=== PATIENT | female | born 1980 | race Caucasian/White ===

== ENCOUNTER → 2016-06-27 | Outpatient (CLI) | payer SELFPAY ==
[2016-06-27 09:02] LABS: ASPARTATE AMINO TRANSFERASE 44 IU/L (8-39); BILIRUBIN,TOTAL 0.5 mg/dL (0.3-1.2); BLOOD UREA NITROGEN 12 mg/dL (7-22); BUN/CREATININE RATIO 17.14 (6-20); CALCIUM 9.6 mg/dL (8.7-10.7); CHLORIDE 102 meq/L (98-112); CREATININE 0.7 mg/dL (0.50-1.20); EST GLOMERULAR FILTRATION > 60 (>60 ml/min/1.73m(2)); GLUCOSE 264 mg/dL (78-110); HDL CHOLESTEROL 43 mg/dL (40-150); POTASSIUM 4.2 meq/L (3.8-5.2); SODIUM 139 meq/L (135-145); TOTAL PROTEIN 7.7 g/dL (6.1-8.0); TRIGLYCERIDES 300 mg/dL (44-200)
[2016-06-27 09:03] LABS: HEMOGLOBIN A1C 9.23 % (4.2-6.0); MEAN BLOOD GLUCOSE (CALC) 221.359 mg/dL
== END ==
LOC: LAB 08:04
PROVIDERS: ATTEND Family Medicine
DX: E11.9 Type 2 diabetes mellitus without complications (principal); Z79.4 Long term (current) use of insulin; E78.00 Pure hypercholesterolemia, unspecified; F17.200 Nicotine dependence, unspecified, uncomplicated
CPT/HCPCS: 36415; 80053; 80061; 83036

== ENCOUNTER 2016-06-28 15:10 | Emergency (ER) | payer SELFPAY ==
[2016-06-28] MEDS ORDERED: Lidocaine 1% 10 MG/ML - 20 ML VIAL SUBCUT ONE (15:41)
[2016-06-28 15:42] VITALS: RESP 16; TEMP 96
--- NOTE | 2016-06-28 23:40 | PDOC ---
Skin Rash/Insect/Abscess HPI - General Chief Complaint: Integumentary Stated Complaint: boil on abdomen Date Seen by Provider: 06/28/16 Time Seen by Provider: 15:25 Source: POSITIVE: Patient Exam Limitations: POSITIVE: No limitations Nurse's Notes Reviewed & Considered: Yes - History of Present Illness Initial Comments: The patient is a 36-year-old female. She states that for the past 2 days she has had a painful boil on her left lower abdomen. History of non-insulin- dependent diabetes mellitus. History of PCOS. No fevers or chills. No GI or symptoms. Have you received a tetanus shot in the past 10 years?: Unknown Body Location Affected: REPORTS: Abdomen (Fluctuant subcutaneous abscess left lower abdomen) Timing: REPORTS: Gradual, Getting Worse Duration: >24 hours (Approximately 24 hours) Severity: Moderate Quality: REPORTS: "Pain" Identified Causes: REPORTS: Yes (Subcutaneous abscess as above) Where Exposed: REPORTS: Home Suspected Etiology: DENIES: Antibiotic, Aspirin, NSAID, KATIANA Inhibitor, Shellfish , Nuts, Soybeans, Eggs, Dairy, Bee/Wasp Sting, Ant Bite, Poison [place], Poison [place] , Infectious Illness, Spider Bite, Insect Bite, Soap, Detergent, Other Similar Symptoms Previously: No Recent Care Received: REPORTS: Denies Any Prior Injuries Related to Current Complaint?: No - Patient Home Medications Home Medications: Home Medications Ibuprofen [Motrin Tab] 800 mg PO TID PRN 10/13/14 Pen Needle, Diabetic, Safety [Autoshield Duo Pen Needle] 1 each QHS #30 unit 10/29/14 Insulin Glargine SoloStar Inj [Lantus Solostar Inj] 34 units SUBCUT QHS #1 box 08/26/15 Metformin HCl 1,000 mg ORAL BID #180 tab 08/26/15 Citalopram Hydrobromide [Celexa] 1 tab PO QD #90 tab 12/23/15 Syringe & Needle,Insulin,1 ml [Insulin Syringe] 1 each QHS #1 box 02/24/16 Pen Needle, Diabetic [Unifine Pentips Plus] 1 each QHS #100 unit 02/26/16 Lovastatin 20 mg PO DAILY #90 tab 03/06/16 - Patient Allergies Allergies/Adverse Reactions: Allergies Allergy/AdvReac Type Severity Reaction Status Date / Time No Known Drug Allergies Allergy NOT Verified 06/28/16 15:21 APPLICABLE Past Medical History - heen HEENT History: Cataracts, Other (please comment) Additional HEENT History: Hx of bilateral cataract removal. Cardiovascular History: Hypertension Respiratory History: Denies History, Other (please comment) Additional Respiratory History: chronic tobacco abuse Gastrointestinal History: GERD, Gallbladder Disease Additional Gastrointestinal History: Hx of Cholecystectomy Genitourinary History: Other (please comment) Additional Genitourinary History: Pt reports UTI's Endocrine History: Type 2 Diabetes (oral), Type 2 Diabetes (insulin) Musculoskeletal History: Joint Pain Prosthesis or Implant: No Additional Musculoskeletal History: Hx of Right - ACL repair. Neurological History: Denies History Blood Disorders: Denies History Psychiatric History: Depression, Substance Abuse Additional Psychiatric History: Hx of ETOH abuse History of Sexually Transmitted Diseases: No Female Reproductive History: Other (please comment) Additional Female Reproductive History: pcos LMP: 05/30/16 Cancer History: Denies History In Past Year Been Physically Harmed or Verbally Threatened: No History of MDRO: No History of Other Communicable Diseases: No Tobacco Use: Current Every Day Smoker Alcohol Use: Rarely Substance Use Type: None Previous Surgical History: No Type / Date of Surgery: EYE SURGERY Bilateral cataract extraction and IOLI, CHOLECYSTECTOMY, R KNEE ACL repair Anesthesia Reactions: No Malignant Hyperthermia: No Significant Family History: Diabetes, Renal disease Past Medical History Reviewed: Reviewed - No Changes ROS - Limitations ROS Limitations: No Limitations Constitution: REPORTS: Denies Symptoms Cardiovascular: REPORTS: Denies Cardiac Symptoms Respiratory: REPORTS: Denies Resp Symptoms Neurological: REPORTS: Denies Neuro Symptoms Gastrointestinal: REPORTS: Denies GI Symptoms Endocrine: REPORTS: Denies Symptoms Musculoskeletal: REPORTS: Denies MS Symptoms Genitourinary: REPORTS: Denies Symptoms Eyes: REPORTS: Denies Symptoms ENT: REPORTS: Denies Symptoms Skin: REPORTS: Skin Lesions (Subcutaneous abscess left lower abdomen) Lympathic: REPORTS: Denies Lympathic Symptoms Immunologic: POSITIVE: Denies Symptoms Psychiatric: POSITIVE: Denies Psych Symptoms Skin Rash/Insect/Abscess Exam - General Appearance General Appearance: REPORTS: Alert, Cooperative, No Acute Distress, No Evidence of Trauma, Other (Obese with prominent abdominal pannus, under which abscess is located) - Skin Skin: REPORTS: Abscess, Tender Indurated Area, Pointing, Fluctuant, Wtih Erythema Skin Location: REPORTS: Abdomen Skin Character: REPORTS: Asymmetric Skin Symptoms: REPORTS: Warmth, Tenderness, Swelling (Over abscess) - Respiratory Respiratory: REPORTS: No Respiratory Distress, Breath Sounds Normal - Cardiovascular Cardiovascular: REPORTS: Regular Rate and Rhythm, Heart Sounds Normal, Equal Pulses, Strong Pulses Peripheral Pulses: Radial (R): 2+, Radial (L): 2+ - Abdomen Abdomen: Soft: (All Quadrants), Normal Bowel Sounds: (All Quadrants), Denies Tenderness: (All Quadrants), No Splenomegaly: (All Quadrants), No Hepatomegaly: (All Quadrants), No Guarding: (All Quadrants), No Rebound: (All Quadrants), No Palpable Pulse: (All Quadrants), No Palpabale Mass: (All Quadrants), No Distention: (All Quadrants), No Rigidity: (All Quadrants) - Neurological / Psychological Neurological: REPORTS: 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, 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, 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 Normal As Tested, Motor Normal, Sensation Normal Procedures - Incision and Drainage Site: left lower abdomen Skin Prep: Sterile Field Maintained, Sterile Drapes Applied, Sterile Dressing Applied, Shur-Clens Local Anesthesia Used - Indicate Amt Used in Comment: Lidocaine 1%: Yes Blade Size: 15 I & D Procedure: sterile drapes applied, sterile dressing applied, gauze wick placed (Quarter inch Nu Gauze) I&D Treatment: Purulent Drainage, Large Amount, Probed to Brk Loculations, Packed w/ Gauze, Obtained Cultures Images - Complete Complete: 1 - Subcutaneous abscess Skin Rash/Abscess Progress - Patient's Progress Pain Medication Addressed: POSITIVE: Yes (Recommended Advil or Tylenol) School/Work Release Addressed: POSITIVE: Not Applicable Re-Examine Time:: 16:05 Re-Examine Comment: Abscess incision and drainage complete Status: POSITIVE: Improved, Re-Examined (Abscess incised and drained) - Consult Counseled: POSITIVE: Patient, RE: DX, RE: Need for F/U Patient Care Time - Estimated PCT Patient Care Time (In Minutes): 25 Vital Signs - VS Reviewed Vital Signs Reviewed: Yes Discharge Clinical Impression: Abscess Discharge Disposition: Discharged to Home Condition: Good Patient Instructions Given at Discharge: Abscess Incision and Drainage (ED) Additional Instructions: Tylenol or Advil for discomfort. Keep abscess packing in. Return in 2 days for reevaluation and probably packing change. Return anytime if condition worsens in any way whatsoever. Follow Up With: CONNOR ROBERTSON [Primary Care Provider] - (Instructions as above. Return anytime if condition worsens. Return in 2 days for reevaluation as above.)
== END 2016-06-28 16:20 | disposition home or self-care (01) ==
LOC: ER 15:10
DX: L02.211 Cutaneous abscess of abdominal wall (principal); E11.9 Type 2 diabetes mellitus without complications; Z79.4 Long term (current) use of insulin
CPT/HCPCS: 10060; 87070; 87186; 87205; 99282; J2001

== ENCOUNTER 2016-06-30 10:42 | Emergency (ER) | payer SELFPAY ==
[2016-06-30 11:10] VITALS: RESP 18; TEMP 97.1
--- NOTE | 2016-06-30 11:17 | PDOC ---
Wound/Burn Recheck HPI - General Chief Complaint: Wound Recheck / Suture Removal Stated Complaint: Wound Recheck Date Seen by Provider: 06/30/16 Time Seen by Provider: 10:55 Source: POSITIVE: Patient Exam Limitations: POSITIVE: No limitations Nurse's Notes Reviewed & Considered: Yes - History of Present Illness Initial Comments: The patient is a 36-year-old female who presents to the emergency department for a wound recheck. She developed an abscess in the left lower abdomen and was evaluated here in the emergency room on 02/25. She underwent incision and drainage of an abscess with packing placement. She is here today for wound check. She states that overall the wound is feeling better with decreased pain. She denies fevers or chills or any other associated complaints. She is diabetic and states that her blood sugars are up and down which is not unusual for her. Have you received a tetanus shot in the past 10 years?: Yes - Patient Home Medications Home Medications: Home Medications Ibuprofen [Motrin Tab] 800 mg PO TID PRN 10/13/14 Pen Needle, Diabetic, Safety [Autoshield Duo Pen Needle] 1 each QHS #30 unit 10/29/14 Metformin HCl 1,000 mg ORAL BID #180 tab 08/26/15 Citalopram Hydrobromide [Celexa] 1 tab PO QD #90 tab 12/23/15 Syringe & Needle,Insulin,1 ml [Insulin Syringe] 1 each QHS #1 box 02/24/16 Pen Needle, Diabetic [Unifine Pentips Plus] 1 each QHS #100 unit 02/26/16 Lovastatin 20 mg PO DAILY #90 tab 03/06/16 Empagliflozin/Linagliptin [Glyxambi 25 Mg-5 Mg Tablet] Sample #91 06/29/16 Insulin Glargine SoloStar Inj [Lantus Solostar Inj] 40 units SUBCUT QHS #1 box 06/29/16 Sulfameth/Trimeth 800/160 Tab [Bactrim DS 800/160 Tab] 1 each PO BID #10 tablet 06/30/16 - Patient Allergies Allergies/Adverse Reactions: Allergies Allergy/AdvReac Type Severity Reaction Status Date / Time No Known Drug Allergies Allergy NOT Verified 06/30/16 10:52 APPLICABLE Past Medical History - heen HEENT History: Cataracts, Other (please comment) Additional HEENT History: Hx of bilateral cataract removal. Cardiovascular History: Hypertension, Hyperlipidemia Respiratory History: Denies History, Other (please comment) Additional Respiratory History: chronic tobacco abuse Gastrointestinal History: GERD, Gallbladder Disease Additional Gastrointestinal History: Hx of Cholecystectomy Genitourinary History: Other (please comment) Additional Genitourinary History: Pt reports UTI's Endocrine History: Type 2 Diabetes (oral), Type 2 Diabetes (insulin) Musculoskeletal History: Joint Pain Prosthesis or Implant: No Additional Musculoskeletal History: Hx of Right - ACL repair. Neurological History: Denies History Blood Disorders: Denies History Psychiatric History: Depression, Substance Abuse Additional Psychiatric History: Hx of ETOH abuse History of Sexually Transmitted Diseases: No Cancer History: Denies History In Past Year Been Physically Harmed or Verbally Threatened: No History of MDRO: No History of Other Communicable Diseases: No Tobacco Use: Current Every Day Smoker Alcohol Use: Rarely Substance Use Type: None Previous Surgical History: No Type / Date of Surgery: EYE SURGERY Bilateral cataract extraction and IOLI, CHOLECYSTECTOMY, R KNEE ACL repair Anesthesia Reactions: No Malignant Hyperthermia: No Significant Family History: Diabetes, Renal disease Past Medical History Reviewed: Reviewed - No Changes ROS - Limitations ROS Limitations: No Limitations (Review of systems otherwise noncontributory) Wound/Burn Recheck Exam - General Appearance General Appearance: POSITIVE: Alert, Cooperative, No Acute Distress - Abdomen Additional Abdominal Details: Examination of the abdomen reveals a small incision to the left lower abdomen under the pannus, the packing is removed and a small wick replaced. Overall the abscess does not appear to be reaccumulating and appears to be resolving. There is however some diffuse erythema and warmth that extends up onto her abdomen for 5 cm from the wound concerning for a mild cellulitis. Wound/Burn Recheck Progress - Patient's Progress MDM / ED Course: She does appear to be developing some mild some cellulitis around the wound. Wound cultures are still pending at this time. She was started on Bactrim DS one twice a day. some packing was placed back in the wound and she is advised to return to the emergency room in 2 days again for a wound recheck and likely packing removal. - Consult Counseled: POSITIVE: Patient, RE: DX, RE: Need for F/U Patient Care Time - Estimated PCT Patient Care Time (In Minutes): 10 Vital Signs - Recent Vital Signs Vital Signs: Vital Signs (Last 8 hours) Temp Pulse Resp BP Pulse Ox 06/30/16 10:54 97.1 F 107 H 18 131/107 93 - VS Reviewed Vital Signs Reviewed: Yes Discharge Clinical Impression: Abscess, Cellulitis Condition: Stable Prescriptions / Orders: Sulfameth/Trimeth 800/160 Tab [Bactrim DS 800/160 Tab] 1 each PO BID #10 tablet Patient Instructions Given at Discharge: Cellulitis (ED), Abscess (ED) Additional Instructions: There does appear to be some infection in the soft tissue around where the abscess was drained. Recommend starting Bactrim DS one twice a day for 5 days. Keep the dressing and packing in place for now. Return to the emergency room for a wound recheck in 2 days. Return sooner if fevers chills, increased pain, any worsening or change in symptoms. Follow Up With: CONNOR ROBERTSON [Primary Care Provider] -
== END 2016-06-30 11:15 | disposition home or self-care (01) ==
LOC: ER 10:42
DX: L02.211 Cutaneous abscess of abdominal wall (principal); L03.311 Cellulitis of abdominal wall; E11.9 Type 2 diabetes mellitus without complications; Z79.4 Long term (current) use of insulin
CPT/HCPCS: 99282

== ENCOUNTER 2016-07-02 08:40 | Emergency (ER) | payer SELFPAY ==
--- NOTE | 2016-07-02 08:56 | PDOC ---
Wound/Burn Recheck HPI - General Chief Complaint: Wound Recheck / Suture Removal Stated Complaint: ABDOMINAL ABCESS RECHECK Date Seen by Provider: 07/02/16 Time Seen by Provider: 08:45 Source: POSITIVE: Patient Exam Limitations: POSITIVE: No limitations - History of Present Illness Initial Comments: Ms Mitchell is a 36 year old woman coming in today for an abscess recheck. She was seen most recently last wednesday, 2 days ago, and was started on bactrim at that time, adn the wound was re-packed. The abscess was drained first 4 days ago. She feels much better today, with less redness, less pain, and no fever/nausea/ vomiting/fatigue/dizziness or other systemic symptoms. There is still a small amount of drainage present. Have you received a tetanus shot in the past 10 years?: Yes - Patient Home Medications Home Medications: Home Medications Ibuprofen [Motrin Tab] 800 mg PO TID PRN 10/13/14 Pen Needle, Diabetic, Safety [Autoshield Duo Pen Needle] 1 each QHS #30 unit 10/29/14 Metformin HCl 1,000 mg ORAL BID #180 tab 08/26/15 Citalopram Hydrobromide [Celexa] 1 tab PO QD #90 tab 12/23/15 Syringe & Needle,Insulin,1 ml [Insulin Syringe] 1 each QHS #1 box 02/24/16 Pen Needle, Diabetic [Unifine Pentips Plus] 1 each QHS #100 unit 02/26/16 Lovastatin 20 mg PO DAILY #90 tab 03/06/16 Insulin Glargine SoloStar Inj [Lantus Solostar Inj] 40 units SUBCUT QHS #1 box 06/29/16 Empagliflozin/Linagliptin [Glyxambi 25 mg-5 mg Tablet] 1 each PO DAILY 06/30/16 Sulfameth/Trimeth 800/160 Tab [Bactrim DS 800/160 Tab] 1 each PO BID #10 tablet 06/30/16 - Patient Allergies Allergies/Adverse Reactions: Allergies Allergy/AdvReac Type Severity Reaction Status Date / Time No Known Drug Allergies Allergy NOT Verified 06/30/16 10:52 APPLICABLE Past Medical History - heen HEENT History: Cataracts, Other (please comment) Additional HEENT History: Hx of bilateral cataract removal. Cardiovascular History: Hypertension, Hyperlipidemia Respiratory History: Denies History, Other (please comment) Additional Respiratory History: chronic tobacco abuse Gastrointestinal History: GERD, Gallbladder Disease Additional Gastrointestinal History: Hx of Cholecystectomy Genitourinary History: Other (please comment) Additional Genitourinary History: Pt reports UTI's Endocrine History: Type 2 Diabetes (oral), Type 2 Diabetes (insulin) Musculoskeletal History: Joint Pain Prosthesis or Implant: No Additional Musculoskeletal History: Hx of Right - ACL repair. Neurological History: Denies History Blood Disorders: Denies History Psychiatric History: Depression, Substance Abuse Additional Psychiatric History: Hx of ETOH abuse History of Sexually Transmitted Diseases: No Cancer History: Denies History History of MDRO: No History of Other Communicable Diseases: No Alcohol Use: Rarely Substance Use Type: None Previous Surgical History: No Type / Date of Surgery: EYE SURGERY Bilateral cataract extraction and IOLI, CHOLECYSTECTOMY, R KNEE ACL repair Anesthesia Reactions: No Malignant Hyperthermia: No Significant Family History: Diabetes, Renal disease Past Medical History Reviewed: Reviewed - No Changes ROS - Limitations ROS Limitations: No Limitations Constitution: REPORTS: Denies Symptoms Cardiovascular: REPORTS: Denies Cardiac Symptoms Respiratory: REPORTS: Denies Resp Symptoms Neurological: REPORTS: Denies Neuro Symptoms Gastrointestinal: REPORTS: Denies GI Symptoms Endocrine: REPORTS: Denies Symptoms Musculoskeletal: REPORTS: Denies MS Symptoms Eyes: REPORTS: Denies Symptoms ENT: REPORTS: Denies Symptoms Skin: REPORTS: Other (as in HPI) Immunologic: POSITIVE: Denies Symptoms Psychiatric: POSITIVE: Denies Psych Symptoms Wound/Burn Recheck Exam - General Appearance General Appearance: POSITIVE: Alert, Cooperative, No Acute Distress - Neuro/Vascular/Tendon Neuro/Vascular/Tendon: POSITIVE: No Vascular Compromise, Motor Normal, Sensation Normal - Skin Skin: POSITIVE: Other (small healing abscess site on left lower abdomen. erythema is very much improved compared to line drawn 2 days ago. no fluctuance. small amount of packing present. minimally TTP) - HEENT HEENT: POSITIVE: Head Inspection Nml, Eyes Inspection Nml, Ears Inspection Nml - Neck Neck/Back: POSITIVE: Normal Inspection - Respiratory / CVS Respiratory / CVS: POSITIVE: No Respiratory Distress, Regular Rate/Rhythm - Abdomen Abdomen: Soft: (All Quadrants), Denies Tenderness: (All Quadrants), No Guarding : (All Quadrants), No Rebound: (All Quadrants) Wound/Burn Recheck Progress - Patient's Progress MDM / ED Course: Ms Mitchell is here for an acute drained abscess, this is her 3rd visit for this same problem. At this wound check, she is almost completely recovered. We removed the packing and did not need to replace it. We recommended finishing out the course of bactrim and following up with primary care if she doesn't feel better once the antibiotics are finished. Patient Care Time - Estimated PCT Patient Care Time (In Minutes): 5 Vital Signs - VS Reviewed Vital Signs Reviewed: Yes Discharge Clinical Impression: Abscess Discharge Disposition: Discharged to Home Condition: Stable Patient Instructions Given at Discharge: Abscess Incision and Drainage (ED)
[2016-07-02 09:04] VITALS: RESP 14; TEMP 96.9
== END 2016-07-02 09:05 | disposition home or self-care (01) ==
LOC: ER 08:40
DX: L02.211 Cutaneous abscess of abdominal wall (principal); E11.9 Type 2 diabetes mellitus without complications; Z79.4 Long term (current) use of insulin
CPT/HCPCS: 99282

== ENCOUNTER 2016-09-19 21:25 | Emergency (ER) | payer SELFPAY ==
[2016-09-19 21:42] VITALS: RESP 20; TEMP 97.1
[2016-09-19] MEDS ORDERED: IBUPROFEN 600 MG TABLET PO ONE (21:48)
[2016-09-19] MEDS ORDERED: HYDROcodone-APAP 5 MG -325 MG TABLET PO SCH (22:00)
[2016-09-19] MEDS ORDERED: AMOXICILLIN 500 MG CAPSULE PO SCH (22:00)
--- NOTE | 2016-09-19 22:42 | PDOC ---
Sore Throat/Dental Pain HPI - General Chief Complaint: Nasal/Mouth Problem /Injury Stated Complaint: TOOTH PAIN Date Seen by Provider: 09/19/16 Time Seen by Provider: 21:30 Source: POSITIVE: Patient Exam Limitations: POSITIVE: No limitations Nurse's Notes Reviewed & Considered: Yes - History of Present Illness Initial Comments: The patient is a 36-year-old female who presents to the emergency department with left upper molar pain. She states that she has had problems with a left upper molar for some time. A couple of days ago she was eating and several pieces of the tooth broke off. Since then she has had increased pain as well as some drainage from the tooth. She denies fevers or chills, difficulty swallowing or any other associated complaints. - Patient Home Medications Home Medications: Home Medications Ibuprofen [Motrin Tab] 800 mg PO TID PRN 10/13/14 Pen Needle, Diabetic, Safety [Autoshield Duo Pen Needle] 1 each QHS #30 unit 10/29/14 Metformin HCl 1,000 mg ORAL BID #180 tab 08/26/15 Citalopram Hydrobromide [Celexa] 1 tab PO QD #90 tab 12/23/15 Syringe & Needle,Insulin,1 ml [Insulin Syringe] 1 each QHS #1 box 02/24/16 Pen Needle, Diabetic [Unifine Pentips Plus] 1 each QHS #100 unit 02/26/16 Lovastatin 20 mg PO DAILY #90 tab 03/06/16 Insulin Glargine SoloStar Inj [Lantus Solostar Inj] 40 units SUBCUT QHS #1 box 06/29/16 Empagliflozin/Linagliptin [Glyxambi 25 mg-5 mg Tablet] 1 each PO DAILY 06/30/16 Sulfameth/Trimeth 800/160 Tab [Bactrim DS 800/160 Tab] 1 each PO BID #10 tablet 06/30/16 Insulin Glargine SoloStar Inj [Lantus Solostar Inj] Sample #10 08/25/16 Amoxicillin 500 mg PO Q8H #21 cap 09/19/16 HYDROcodone/APAP 5/325 Tab [[place] 5/325 Tab] 1 each PO Q6H PRN #10 tablet - Patient Allergies Allergies/Adverse Reactions: Allergies Allergy/AdvReac Type Severity Reaction Status Date / Time No Known Drug Allergies Allergy NOT Verified 09/19/16 21:32 APPLICABLE Past Medical History - heen HEENT History: Cataracts, Other (please comment) Additional HEENT History: Hx of bilateral cataract removal. Cardiovascular History: Hypertension, Hyperlipidemia Respiratory History: Denies History, Other (please comment) Additional Respiratory History: chronic tobacco abuse Gastrointestinal History: GERD, Gallbladder Disease Additional Gastrointestinal History: Hx of Cholecystectomy Genitourinary History: Other (please comment) Additional Genitourinary History: Pt reports UTI's Endocrine History: Type 2 Diabetes (oral), Type 2 Diabetes (insulin) Musculoskeletal History: Joint Pain Prosthesis or Implant: No Additional Musculoskeletal History: Hx of Right - ACL repair. Neurological History: Denies History Blood Disorders: Denies History Psychiatric History: Depression, Substance Abuse Additional Psychiatric History: Hx of ETOH abuse History of Sexually Transmitted Diseases: No Female Reproductive History: Other (please comment) Additional Female Reproductive History: PCOS Obstetrical History: Denies History Cancer History: Denies History In Past Year Been Physically Harmed or Verbally Threatened: No History of MDRO: No History of Other Communicable Diseases: No Tobacco Use: Current Every Day Smoker Alcohol Use: Rarely Substance Use Type: None Previous Surgical History: No Type / Date of Surgery: EYE SURGERY Bilateral cataract extraction and IOLI, CHOLECYSTECTOMY, R KNEE ACL repair Anesthesia Reactions: No Malignant Hyperthermia: No Significant Family History: Diabetes, Renal disease Past Medical History Reviewed: Reviewed - No Changes ROS - Limitations ROS Limitations: No Limitations Constitution: DENIES: Chills, Fever Cardiovascular: REPORTS: Denies Cardiac Symptoms Respiratory: REPORTS: Denies Resp Symptoms Neurological: REPORTS: Denies Neuro Symptoms Sore Throat/Dental Pain Exam - General Appearance General Appearance: REPORTS: Alert, Cooperative, No Acute Distress - HEENT Head / Face: POSITIVE: No Facial Swelling Eyes: POSITIVE: Inspection Normal Ears: POSITIVE: Ears Normal Inspection Nose: POSITIVE: Inspection Normal Oropharynx: POSITIVE: Pharynx Inspect. Nml, Airway Intact, Voice Normal, Moist Mucous Membranes, Other (She does have multiple dental caries, left upper molar is broken off at the gum, there is some surrounding erythema and swelling to the gum at the base of this tooth) Neck: POSITIVE: Supple. NEGATIVE: Lymphadenopathy - Respiratory Respiratory: REPORTS: No Respiratory Distress, Breath Sounds Normal - Cardiovascular Cardiovascular: REPORTS: Regular Rate and Rhythm, Heart Sounds Normal Sore Throat/Dental Progress - Patient's Progress MDM / ED Course: The patient was started on amoxicillin 500 mg 3 times a day for 7 days. She is advised to take ibuprofen for pain and was given a prescription for [place] 5/325 as needed for pain. She is advised return to the emergency room if increased pain, increased swelling, difficulty swallowing, dehydration, any worsening or change in symptoms. She is advised to follow-up with a dentist as soon as possible. [facility] [place] as she states she does not have the money to go to a local dentist. - Consult Counseled: POSITIVE: Patient, RE: DX, RE: Need for F/U Patient Care Time - Estimated PCT Patient Care Time (In Minutes): 10 Vital Signs - Recent Vital Signs Vital Signs: Vital Signs (Last 8 hours) Temp Pulse Resp BP Pulse Ox 09/19/16 21:27 97.1 F 100 20 134/97 92 - VS Reviewed Vital Signs Reviewed: Yes Discharge Clinical Impression: Dental abscess Discharge Disposition: Discharged to Home Condition: Stable Prescriptions / Orders: Amoxicillin 500 mg PO Q8H #21 cap HYDROcodone/APAP 5/325 Tab [[place] 5/325 Tab] 1 each PO Q6H PRN #10 tablet PRN Reason: Pain Patient Instructions Given at Discharge: Dental Abscess (ED) Additional Instructions: Start amoxicillin 500 mg 3 times a day for 7 days. Ibuprofen 4-600 mg every 6 hours as needed for pain. [place] 5/325 one every 6 hours as needed for pain. Return to the emergency room if increased swelling, difficulty swallowing, dehydration, any worsening or change in symptoms. Recommend follow-up with a dentist as soon as possible. [facility] [place] [facility] a dental office that sees people on a sliding scale. Their phone number is [phone]. Follow Up With: CONNOR ROBERTSON [Primary Care Provider] -
== END 2016-09-19 22:02 | disposition home or self-care (01) ==
LOC: ER 21:25
DX: K04.7 Periapical abscess without sinus (principal); K08.89 Other specified disorders of teeth and supporting structures
CPT/HCPCS: 99282

== ENCOUNTER → 2016-09-19 | Outpatient (CLI) | payer SELFPAY ==
[2016-09-19 07:43] LABS: HEMATOCRIT 49.5 % (37.0-47.0); HEMOGLOBIN 16.8 g/dL (12.0-16.0); MEAN CORPUSCULAR HEMOGLOBIN 29.7 PG (27-31); MEAN CORPUSCULAR HGB CONC 33.9 g/dL (33-37); MEAN CORPUSCULAR VOLUME 87.6 FL (81-99); MEAN PLATELET VOLUME 9.5 FL (7.4-12.2); RED BLOOD COUNT 5.65 10^6/uL (4.20-5.40)
[2016-09-19 08:15] LABS: BLOOD UREA NITROGEN 18 mg/dL (7-22); CHOL/HDL RATIO 4.17 RATIO (0-4.0); EST GLOMERULAR FILTRATION > 60 (>60 ml/min/1.73m(2)); HDL CHOLESTEROL 41 mg/dL (40-150); SERUM ALBUMIN 4.2 g/dL (3.5-4.8); SERUM CHOLESTEROL 171 mg/dL (120-200)
[2016-09-19 08:18] LABS: HEMOGLOBIN A1C 7.05 % (4.2-6.0)
== END ==
LOC: LAB 07:24
PROVIDERS: ATTEND Family Medicine
DX: E11.9 Type 2 diabetes mellitus without complications (principal); Z79.4 Long term (current) use of insulin; E78.00 Pure hypercholesterolemia, unspecified
CPT/HCPCS: 36415; 80053; 80061; 83036; 84443; 85027

== ENCOUNTER 2016-11-06 18:56 | Emergency (ER) | payer SELFPAY ==
[2016-11-06 19:20] VITALS: RESP 18; TEMP 96.4
--- NOTE | 2016-11-06 19:31 | PDOC ---
Hand / Wrist Injury HPI - General Chief Complaint: Laceration / Wound Stated Complaint: Laceration to 5th digit, left hand Date Seen by Provider: 11/06/16 Time Seen by Provider: 18:57 Source: POSITIVE: Patient Exam Limitations: POSITIVE: No limitations Nurse's Notes Reviewed & Considered: Yes - History of Present Illness Initial Comments: The patient is a 36-year-old female. She states that approximately 30 minutes [employer] she was working with a kitchen knife and accidentally lacerated her left fifth finger, radial aspect, just distal to the PIP joint. Patient has a history of insulin-dependent diabetes mellitus. No sensory, motor or vascular deficits. No paresthesias or tendon deficits. Have you received a tetanus shot in the past 10 years?: Unknown Body Location Affected: REPORTS: Upper Extremity (L) Timing: REPORTS: Abrupt Duration: 1/2 hour Severity: Mild Location at Time of Onset: REPORTS: Home Context: REPORTS: Laceration Location of Injury: REPORTS: Left, Hand, 5th Finger Quality: REPORTS: "Pain" (Locally, mild) Modifying Factors: REPORTS: Other (Some discomfort on direct palpation) Associated Symptoms: DENIES: Arm (R), Arm (L), Tingling Distally, Numbness Distally, Loss of Feeling, Loss of Power, Other Any Prior Injuries Related to Current Complaint?: No - Patient Home Medications Home Medications: Home Medications Ibuprofen [Motrin Tab] 800 mg PO TID PRN 10/13/14 Pen Needle, Diabetic, Safety [Autoshield Duo Pen Needle] 1 each QHS #30 unit 10/29/14 Metformin HCl 1,000 mg ORAL BID #180 tab 08/26/15 Citalopram Hydrobromide [Celexa] 1 tab PO QD #90 tab 12/23/15 Syringe & Needle,Insulin,1 ml [Insulin Syringe] 1 each QHS #1 box 02/24/16 Pen Needle, Diabetic [Unifine Pentips Plus] 1 each QHS #100 unit 02/26/16 Lovastatin 20 mg PO DAILY #90 tab 03/06/16 Insulin Glargine SoloStar Inj [Lantus Solostar Inj] 40 units SUBCUT QHS #1 box 06/29/16 HYDROcodone/APAP 5/325 Tab [[place] 5/325 Tab] 1 each PO Q6H PRN #10 tablet Empagliflozin/Linagliptin [Glyxambi 25 Mg-5 Mg Tablet] 1 each PO DAILY #90 tab 09/23/16 - Patient Allergies Allergies/Adverse Reactions: Allergies Allergy/AdvReac Type Severity Reaction Status Date / Time No Known Drug Allergies Allergy NOT Verified 11/06/16 19:00 APPLICABLE Past Medical History - heen HEENT History: Cataracts, Other (please comment) Additional HEENT History: Hx of bilateral cataract removal. Cardiovascular History: Hypertension, Hyperlipidemia Respiratory History: Denies History, Other (please comment) Additional Respiratory History: chronic tobacco abuse Gastrointestinal History: GERD, Gallbladder Disease Additional Gastrointestinal History: Hx of Cholecystectomy Genitourinary History: Other (please comment) Additional Genitourinary History: Pt reports UTI's Endocrine History: Type 2 Diabetes (oral), Type 2 Diabetes (insulin) Musculoskeletal History: Joint Pain Prosthesis or Implant: No Additional Musculoskeletal History: Hx of Right - ACL repair. Neurological History: Denies History Blood Disorders: Denies History Psychiatric History: Depression, Anxiety Disorders, Substance Abuse Additional Psychiatric History: Hx of ETOH abuse History of Sexually Transmitted Diseases: No Female Reproductive History: Ovarian Cyst Additional Female Reproductive History: PCOS Cancer History: Denies History In Past Year Been Physically Harmed or Verbally Threatened: No History of MDRO: No History of Other Communicable Diseases: No Tobacco Use: Current Every Day Smoker Alcohol Use: Rarely How much alcohol do you normally drink a day?: pt reports hx of alcohol abuse Substance Use Type: None Previous Surgical History: No Type / Date of Surgery: EYE SURGERY Bilateral cataract extraction and IOLI, CHOLECYSTECTOMY, R KNEE ACL repair Anesthesia Reactions: No Malignant Hyperthermia: No Significant Family History: Diabetes, Renal disease Past Medical History Reviewed: Reviewed - No Changes ROS - Limitations ROS Limitations: No Limitations Constitution: REPORTS: Denies Symptoms Cardiovascular: REPORTS: Denies Cardiac Symptoms Respiratory: REPORTS: Denies Resp Symptoms Neurological: REPORTS: Denies Neuro Symptoms Gastrointestinal: REPORTS: Denies GI Symptoms Endocrine: REPORTS: Denies Symptoms Musculoskeletal: REPORTS: Denies MS Symptoms, Recent Injury (As above) Genitourinary: REPORTS: Denies Symptoms Eyes: REPORTS: Denies Symptoms ENT: REPORTS: Denies Symptoms Skin: REPORTS: Other (Laceration left fifth finger as above; see diagram) Lympathic: REPORTS: Denies Lympathic Symptoms Immunologic: POSITIVE: Denies Symptoms Psychiatric: POSITIVE: Denies Psych Symptoms Hand / Wrist Injury Exam - General Appearance General Appearance: POSITIVE: Alert, Cooperative, No Acute Distress. NEGATIVE: No Evidence of Trauma (laceration left fifth finger as above; see diagram) - Extremities Upper Extremity: POSITIVE: No Evidence of FB, Normal ROM, Soft Tissue Tenderness , Uninjured Above Wrist, See Diagram. NEGATIVE: Bony Tenderness, Swelling, Ecchymosis, Deformity, Complete Nail Injury, Partial Avulsion, Limited ROM, Limited ROM d/t Pain, Ltd. ROM d/t Funct. Def., Snuff Box Position Tender, Axial Thumb Load Pain Neurovascular / Tendon: POSITIVE: Sensation Normal, Motor Normal, No Vascular Compromise, Tendon Function Normal Skin: POSITIVE: Warm, Dry - HEENT HEENT: POSITIVE: Head Inspection Nml, Eyes Inspection Nml, Ears Inspection Nml, Nose Inspection Nml, Oral/Dental Inspect. Nml, Pharynx Inspect. Nml, PERRL, EOMI - Neck / Back Neck/Back: POSITIVE: Normal Inspection, Non-Tender, Painless ROM - Respiratory / CVS Respiratory / CVS: POSITIVE: Chest Non Tender, No Ecchymosis, Breath Sounds Normal, No Respiratory Distress, Heart Sounds Normal, Regular Rate/Rhythm Peripheral Pulses: Radial (R): 2+, Radial (L): 2+ Images - Hands Hand: 1 - Superficial laceration, not carrying into subcutaneous tissue Procedure - Additional Procedures Additional Procedures: Other (Options of treatment were discussed with patient. Wound should heal well by secondary intention. Wound cleansed and sterile dressing placed.) Hand / Wrist Injury Progress - Patient's Progress Pain Medication Addressed: POSITIVE: Yes (recommended Advil or Tylenol) School/Work Release Addressed: POSITIVE: Not Applicable Re-Examine Time: 19:12 Re-Examine Comment: Wound sterilely cleansed with normal saline and dressed with a Band-Aid Status: POSITIVE: Improved, Re-Examined - Consult Counseled: POSITIVE: Patient, RE: DX, RE: Need for F/U Patient Care Time - Estimated PCT Patient Care Time (In Minutes): 13 Vital Signs - Recent Vital Signs Vital Signs: Vital Signs (Last 8 hours) Temp Pulse Resp BP Pulse Ox 11/06/16 18:58 96.4 F L 95 18 143/87 96 - VS Reviewed Vital Signs Reviewed: Yes Discharge Clinical Impression: Laceration - injury Condition: Stable Patient Instructions Given at Discharge: Laceration (ED) Additional Instructions: I believe the laceration to your left fifth finger will heal fine without sutures. Keep a Band-Aid on for 24-48 hours. Wash wound well with soap and water. Return anytime at first sign of infection, or if condition worsens in any way. Follow Up With: CONNOR ROBERTSON [Primary Care Provider] - (Instructions as above. Return anytime if condition worsens in any way. Follow-up with your primary care provider.)
== END 2016-11-06 19:28 | disposition home or self-care (01) ==
LOC: ER 18:56
DX: S61.217A Laceration without foreign body of left little finger without damage to nail, initial encounter (principal); E11.9 Type 2 diabetes mellitus without complications; Z79.4 Long term (current) use of insulin; W26.0XXA Contact with knife, initial encounter
CPT/HCPCS: 99282

== ENCOUNTER → 2016-12-12 | Outpatient (CLI) | payer SELFPAY ==
[2016-12-12 08:09] LABS: BLOOD UREA NITROGEN 14 mg/dL (7-22); CALCIUM 9.4 mg/dL (8.7-10.7); CHOL/HDL RATIO 3.85 RATIO (0-4.0); EST GLOMERULAR FILTRATION > 60 (>60 ml/min/1.73m(2)); HDL CHOLESTEROL 42 mg/dL (40-150); SERUM ALBUMIN 3.9 g/dL (3.5-4.8); SERUM CHOLESTEROL 162 mg/dL (120-200)
[2016-12-12 08:10] LABS: HEMOGLOBIN A1C 6.99 % (4.2-6.0)
== END ==
LOC: LAB 07:12
PROVIDERS: ATTEND Family Medicine
DX: E11.9 Type 2 diabetes mellitus without complications (principal); Z79.4 Long term (current) use of insulin; E78.00 Pure hypercholesterolemia, unspecified; E28.2 Polycystic ovarian syndrome; E66.3 Overweight; L68.0 Hirsutism; Z72.0 Tobacco use
CPT/HCPCS: 36415; 80053; 80061; 83036; 84443